=== PATIENT | female | born 1980 | race Caucasian/White ===

== ENCOUNTER 2017-10-26 09:03 | Emergency (ER) | payer MEDICAID ==
--- NOTE | 2017-10-26 10:03 | EKG ---
Test Date: 2017-10-26 Test Time: 09:47:57 Client Care Consultant: KAYLIN MEASUREMENT RESULTS: Intervals: Rate: 96 IA: 110 QRSD: 72 QT: 378 QTc: 477 Roosevelt: P: 45 IA: 110 QRS: 77 T: 79 INTERPRETIVE STATEMENTS: Sinus rhythm with short IA T wave abnormality, consider inferolateral ischemia Prolonged QT Abnormal ECG Compared to ECG 12/26/2013 17:24:25 Short IA interval now present T-wave abnormality now present Possible ischemia now present Prolonged QT interval now present Electronically Signed On 10-26-17 10:02:[address]
[2017-10-26] MEDS ORDERED: IPRATROPIUM BROM 0.5MG/2.5ML ONE (10:53)
[2017-10-26] MEDS ORDERED: LEVALBUTEROL 1.25 MG/3 ML NEB ONE (10:54)
[2017-10-26 11:17] LABS: Absolute Lymphocytes (CBC) 2.4 K/uL (0.7-4.9); Absolute Monocytes 0.7 K/uL (0.1-1.3); Basophils % 0.5 % (0-1.3); Eosinophils % 4.6 % (0-4.4); Hematocrit 40.4 % (36.0-45.0); Lymphocytes % 15.9 % (15.3-44.8); MCH 31.8 pg (27.0-35.0); MCV 94.1 fL (80-100); MPV 7.4 fL (7.6-11.3); Monocytes % 4.7 % (3.3-12.3); RBC Red Blood Cell Count 4.29 M/uL (3.86-4.86)
[2017-10-26 11:21] LABS: Protime INR 1.03
[2017-10-26 11:33] LABS: Bicarbonate 27 mEq/L (21-31); Glucose Level 112 mg/dL (65-120); Lipase 15 U/L (22-51); Potassium 3.8 mEq/L (3.6-5.0); Sodium Level 140 mEq/L (135-145)
--- NOTE | 2017-10-26 11:36 | RAD REPORT ---
EXAM DESCRIPTION: RAD - Chest Pa And Lat (2 Views) - 10/26/2017 11:27 am CLINICAL HISTORY: Cough x3 days COMPARISON: 02/21/2017 FINDINGS: The lungs are clear. The heart is upper limit of normal in size. No displaced fractures. C holecystectomy clips. IMPRESSION: No acute intrathoracic finding detected.
[2017-10-26 11:39] LABS: ALT/SGPT 21 IU/L (10-60); AST/SGOT 26 IU/L (10-42); Albumin 4.1 g/dL (3.2-5.5); Alkaline Phosphatase 86 IU/L (42-121); Bilirubin Direct 0.1 mg/dL (0-0.2); Bilirubin Total 0.8 mg/dL (0.3-1.2); Protein, Total 7.5 g/dL (6.0-8.3)
[2017-10-26 11:40] LABS: BUN Blood Urea Nitrogen < 5 mg/dL (6-20)
[2017-10-26] MEDS ORDERED: DEXAMETHASONE 10 MG/ML VIAL ONE (12:14)
[2017-10-26] MEDS ORDERED: ALBUTEROL 2.5 MG/3 ML NEB SOL ONE (12:14)
[2017-10-26] MEDS ORDERED: Magnesium Sulfate 2gm IVPB 2 G/50 ML BAG IV ONE (12:14)
--- NOTE | 2017-10-26 12:35 | EDPHYS ---
Physician Documentation [facility] Name: Delia Gates Age: 37 yrs Sex: Female : 1980 Arrival Date: 10/26/2017 Time: 09:06 Bed 8 Private MD: ED Physician Damián Arreguin HPI: 10/26 11:04 This 37 yrs old Female presents to ER via Ambulatory with complaints of wa Cough, Breathing Difficulty, Fever. 11:04 The patient or guardian reports cough, that is constant, difficulty breathing. Onset: wa The symptoms/episode began/occurred 3 day(s) ago. Severity of symptoms: At their worst the symptoms were moderate, in the emergency department the symptoms are actually worse. Modifying factors: The symptoms are alleviated by nothing, the symptoms are aggravated by nothing. Associated signs and symptoms: Pertinent positives: chest pain, with cough, with breathing, rhinorrhea, sore throat, vomiting. The patient has experienced similar episodes in the past, several times, h/o bronchitis. pt a smoker. The patient has not recently seen a physician. 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 - Social history:: Smoking status: Patient uses tobacco products, smokes one-half pack cigarettes per day. - Family history:: not pertinent. - Hospitalizations: : No recent hospitalization is reported. ROS: 11:06 Eyes: Negative for injury, pain, redness, and discharge, Neck: Negative for injury, wa pain, and swelling, Abdomen/GI: Negative for abdominal pain, nausea, vomiting, diarrhea, and constipation, Back: Negative for injury and pain, : Negative for injury, bleeding, discharge, and swelling, MS/Extremity: Negative for injury and deformity, Skin: Negative for injury, rash, and discoloration, Neuro: Negative for headache, weakness, numbness, tingling, and seizure, Psych: Negative for depression, anxiety, suicide ideation, homicidal ideation, and hallucinations. 11:06 Constitutional: Positive for fever, malaise. 11:06 ENT: Positive for rhinorrhea, sore throat, Negative for ear pain. 11:06 Cardiovascular: Positive for chest pain, with cough, Negative for edema, orthopnea, palpitations, paroxysmal nocturnal dyspnea. 11:06 Respiratory: Positive for cough, with no reported sputum, shortness of breath, wheezing, inspiratory, expiratory. 11:06 All other systems are negative. Exam: 11:07 Constitutional: This is a well developed, well nourished patient who is awake, alert, wa and in no acute distress. Head/Face: Normocephalic, atraumatic. Eyes: Pupils equal round and reactive to light, extra-ocular motions intact. Lids and lashes normal. Conjunctiva and sclera are non-icteric and not injected. Cornea within normal limits. Periorbital areas with no swelling, redness, or edema. ENT: Nares patent. No nasal discharge, no septal abnormalities noted. Tympanic membranes are normal and external auditory canals are clear. Oropharynx with no redness, swelling, or masses, exudates, or evidence of obstruction, uvula midline. Mucous membranes moist. Neck: Trachea midline, no thyromegaly or masses palpated, and no cervical lymphadenopathy. Supple, full range of motion without nuchal rigidity, or vertebral point tenderness. No Meningismus. Chest/axilla: Normal chest wall appearance and motion. Nontender with no deformity. No lesions are appreciated. Abdomen/GI: Soft, non-tender, with normal bowel sounds. No distension or tympany. No guarding or rebound. No evidence of tenderness throughout. Back: No spinal tenderness. No costovertebral tenderness. Full range of motion. Skin: Warm, dry with normal turgor. Normal color with no rashes, no lesions, and no evidence of cellulitis. MS/ Extremity: Pulses equal, no cyanosis. Neurovascular intact. Full, normal range of motion. Neuro: Awake and alert, GCS 15, oriented to person, place, time, and situation. Cranial nerves II-XII grossly intact. Motor strength 5/5 in all extremities. Sensory grossly intact. Cerebellar exam normal. Normal gait. Psych: Awake, alert, with orientation to person, place and time. Behavior, mood, and affect are within normal limits. 11:07 Cardiovascular: Rate: tachycardic, Rhythm: regular, Pulses: no pulse deficits are appreciated, Heart sounds: normal, Edema: is not appreciated, JVD: is not appreciated. 11:07 Respiratory: the patient does not display signs of respiratory distress, Respirations: normal, Breath sounds: coarse bilaterally. Vital Signs: 09:37 BP 130 / 81; Pulse 102; Resp 22 S; Temp 98.0(TE); Pulse Ox 96% on R/A; Weight 113.4 kg; iw Height 5 ft. 5 in. (165.10 cm); Pain 8/10; 12:37 BP 124 / 81; Pulse 93; Resp 18 S; Pulse Ox 98% on Nebulizer Mask; iw 13:12 BP 121 / 94; Pulse 93; Resp 20; Temp 98.6; Pulse Ox 95% on R/A; aj 09:37 Body Mass Index 41.60 (113.40 kg, 165.10 cm) iw MDM: 10:29 Patient medically screened. ms 11:08 Differential Diagnosis: Bronchitis Upper Respiratory Infection Asthma Exacerbation wa Pneumonia Other consider COPD. Data reviewed: vital signs, nurses notes. Test interpretation: by ED physician or midlevel provider: EKG: HR 96. ST depression noted inferior-laterally. 12:36 Test interpretation: by ED physician or midlevel provider: labs and xray noted WNL. wa Response to treatment: the patient's symptoms have markedly improved after treatment. 10/26 10:47 Order name: BMP; Complete Time: 11:45 ms 10/26 10:47 Order name: BNP; Complete Time: 11:45 ms 10/26 10:47 Order name: CBC with Diff; Complete Time: 11:45 ms 10/26 10:47 Order name: Hepatic Function; Complete Time: 11:45 ms 10/26 10:47 Order name: Lipase; Complete Time: 11:45 ms 10/26 10:47 Order name: Magnesium; Complete Time: 11:45 ms 10/26 10:47 Order name: XRAY Chest Pa And Lat (2 Views); Complete Time: 11:45 ms 10/26 10:47 Order name: PT-INR; Complete Time: 11:46 ms 10/26 10:47 Order name: Troponin (emerg Dept Use Only); Complete Time: 11:46 ms 10/26 11:04 Order name: Flu ms 10/26 11:04 Order name: Influenza Screen (A ; Complete Time: 12:25 EDVT 10/26 09:54 Order name: EKG Electrocardiogram [facility] 10/26 10:47 Order name: Cardiac monitoring; Complete Time: 12:47 ms 10/26 10:47 Order name: EKG - Nurse/Tech; Complete Time: 10:56 ms 10/26 10:47 Order name: IV Saline Lock; Complete Time: 12:47 ms 10/26 10:47 Order name: Labs collected and sent; Complete Time: 12:47 ms 10/26 10:47 Order name: O2 Per Protocol; Complete Time: 12:47 ms 10/26 10:47 Order name: O2 Sat Monitoring; Complete Time: 12:47 ms Administered Medications: 10:55 Drug: Xopenex 1.25 mg Route: Inhalation; 10:56 Drug: AtroVENT Aerosol 0.5 mg Route: Inhalation; 12:20 Drug: Decadron - Dexamethasone 10 mg Route: IVP; Site: right antecubital; iw 12:20 Drug: Magnesium Sulfate 2 grams Route: IVPB; Infused Over: 2 hrs; Site: right iw antecubital; 13:16 Follow up: Response: No adverse reaction; IV Status: Completed infusion; IV Intake: 50mlaj 12:20 Drug: Albuterol 2.5 mg Route: Inhalation; iw Disposition: 10/26/17 12:34 Discharged to Home. Impression: Shortness of Breath, Acute Bronchitis. - Condition is Stable. - Prescriptions for Zithromax Z- Judson 250 mg Oral Tablet - take 1 tablet by ORAL route as directed for 5 days Day 1 - take two (2) tablets one time. Day 2, 3, 4 , 5 take one (1) tablet once daily.; 6 tablet. Prednisone 20 mg Oral Tablet - take 2 tablet by ORAL route once daily for 5 days; 10 tablet. - Medication Reconciliation Form, Thank You Letter, Antibiotic Education, Prescription Opioid Use form. - Follow up: Private Physician; When: 2 - 3 days; Reason: Recheck today's complaints. - Problem is an acute exacerbation. - Symptoms have improved. - Notes: take your albuterol as needed for cough and congestion. quit smoking. return if worsening immediately Signatures: Dispatcher [employer] EDMS Ave Diamond RN RN aj Williams, Irene, RN RN Nika Alexandre RN RN Damián Arreguin MD MD ms Corrections: (The following items were deleted from the chart) 12:47 10:47 Urine Dipstick-Ancillary ordered. eliazar iw 13:17 12:34 10/26/2017 12:34 Discharged to Home. Impression: Shortness of Breath; Acute aj Bronchitis. Condition is Stable. Forms are Medication Reconciliation Form, Thank You Letter, Antibiotic Education, Prescription Opioid Use. Follow up: Private Physician; When: 2 - 3 days; Reason: Recheck today's complaints. Problem is an acute exacerbation. Symptoms have improved. eliazar
--- NOTE | 2017-10-26 12:35 | ER ---
Nurse's Notes [facility] Name: Delia Gates Age: 37 yrs Sex: Female : 1980 Arrival Date: 10/26/2017 Time: 09:06 Bed 8 Private MD: Diagnosis: Shortness of Breath;Acute Bronchitis Presentation: 10/26 09:35 Presenting complaint: Patient states: has been coughing a whole lot X 3 days, back and iw chest is hurting from cough, c/o intermittent fever, also has sore throat, nasal congestion, vomiting intermittent X 2 days, worse last night. Transition of care: patient was not received from another setting of care. Onset of symptoms was October 23, 2017. Initial Sepsis Screen: Does the patient meet any 2 criteria? No. Patient's initial sepsis screen is negative. Does the patient have a suspected source of infection? No. Patient's initial sepsis screen is negative. Care prior to arrival: None. 09:35 Method Of Arrival: Ambulatory iw 09:35 Acuity: KAYLEIGH 3 iw Triage Assessment: 12:30 General: Appears in no apparent distress. General: Behavior is calm. Respiratory: iw Reports shortness of breath Onset: The symptoms/episode began/occurred today, the patient has mild shortness of breath. 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 - Social history:: Smoking status: Patient uses tobacco products, smokes one-half pack cigarettes per day. - Family history:: not pertinent. - Hospitalizations: : No recent hospitalization is reported. Screenin:37 Abuse screen: Denies threats or abuse. Denies injuries from another. Nutritional iw screening: No deficits noted. Tuberculosis screening: No symptoms or risk factors identified. Fall Risk IV access (20 points). Assessment: 11:30 General: Appears in no apparent distress. Behavior is calm, cooperative. Pain: iw Complains of pain in chest. Neuro: Level of Consciousness is awake, alert, obeys commands, Oriented to person, place, time, situation. Respiratory: Reports shortness of breath Airway is patent Respiratory effort is even, unlabored. GI: Abdomen is non-distended. Derm: Skin is pink, warm \T\ dry. normal. Musculoskeletal: Capillary refill < 3 seconds. 12:37 Reassessment: Patient appears in no apparent distress at this time. Patient and/or iw family updated on plan of care and expected duration. Pain level reassessed. Patient is alert, oriented x 3, equal unlabored respirations, skin warm/dry/pink. pt has mild improvement of symptoms. 12:37 Cardiovascular: Rhythm is regular. Respiratory: Airway Breath sounds are clear iw bilaterally. Vital Signs: 09:37 BP 130 / 81; Pulse 102; Resp 22 S; Temp 98.0(TE); Pulse Ox 96% on R/A; Weight 113.4 kg; iw Height 5 ft. 5 in. (165.10 cm); Pain 8/10; 12:37 BP 124 / 81; Pulse 93; Resp 18 S; Pulse Ox 98% on Nebulizer Mask; iw 13:12 BP 121 / 94; Pulse 93; Resp 20; Temp 98.6; Pulse Ox 95% on R/A; aj 09:37 Body Mass Index 41.60 (113.40 kg, 165.10 cm) iw ED Course: 09:06 Patient arrived in ED. mr 09:36 Triage completed. iw 09:37 Arm band placed on. iw 09:51 EKG done, by special equipment technician. reviewed by Damián Arreguin MD. at1 10:29 Damián Arreguin MD is Attending Physician. wa 10:30 Inserted saline lock: 20 gauge in right antecubital area, using aseptic technique. iw Blood collected. 11:24 X-ray completed. Patient tolerated procedure well. Patient moved back from radiology. ml 11:25 XRAY Chest Pa And Lat (2 Views) In Process Unspecified. EDMS 12:13 Esmer Hoff, RN is Primary Nurse. iw 13:12 Patient has correct armband on for positive identification. aj 13:12 No provider procedures requiring assistance completed. IV discontinued, intact, aj bleeding controlled, No redness/swelling at site. Pressure dressing applied. Administered Medications: 10:55 Drug: Xopenex 1.25 mg Route: Inhalation; hb 10:56 Drug: AtroVENT Aerosol 0.5 mg Route: Inhalation; hb 12:20 Drug: Decadron - Dexamethasone 10 mg Route: IVP; Site: right antecubital; iw 12:20 Drug: Magnesium Sulfate 2 grams Route: IVPB; Infused Over: 2 hrs; Site: right iw antecubital; 13:16 Follow up: Response: No adverse reaction; IV Status: Completed infusion; IV Intake: 50mlaj 12:20 Drug: Albuterol 2.5 mg Route: Inhalation; iw Intake: 13:16 IV: 50ml; Total: 50ml. cristofer Outcome: 12:34 Discharge ordered by . eliazar 13:12 Discharged to home ambulatory, with family. cristofer 13:12 Condition: good 13:12 Discharge instructions given to patient, family, Instructed on discharge instructions, follow up and referral plans. medication usage, Demonstrated understanding of instructions, follow-up care, medications, Prescriptions given X 2. 13:17 Patient left the ED. aj Signatures: Dispatcher [employer] EDAve Rushing RN RN aj Rivera, Maria mr Williams, Irene, RN RN iw Lopez, Melissa ml gonzales, Amanda, emission technician EKG Tat1 Nika Alexandre RN RN Damián Arreguin MD MD wa
[2017-10-26 13:54] VITALS: BP 121/94; TEMP 98.6; O2SAT 95
== END 2017-10-26 13:17 | disposition home or self-care (01) ==
LOC: ER 09:03
DX: J20.9 Acute bronchitis, unspecified (principal); R50.9 Fever, unspecified
CPT/HCPCS: 36415; 71046; 80048; 80076; 83690; 83735; 83880; 84484; 85025; 85610; 87804; 93005; 96365; 96375; 99284; J1100; J3475